=== PATIENT | female | born 1965 | race Caucasian/White ===

== ENCOUNTER → 2016-09-13 | Outpatient (CLI) | payer BC ==
--- NOTE | 2016-09-14 10:22 | DI ---
RIGHT DIAGNOSTIC MAMMOGRAMS, 09/13/2016 3:07 PM: Clinical History: Followup of an abnormal screening mammogram. The study apparently was performed at [place], [place]. At this time, we do not have the outside mammo grams. Prior Exam: 02/25/2011. Digital tomosynthesis scans of the right breast are obtained with the [employer] Interactive Digital Breast Unit. Standard 2-D and C-View images are obtained in the same projections as in the screening exam. C AD review is also performed. Breast tissue density is rated as heterogenously dense. There is no mass or focus of architectural di stortion identified in the right breast. No abnormal calcifications are noted. There are gas lucencie s corresponding to mammary ducts and these lead up to the nipple. Skin contour, nipple, and lower axi llary region are normal. Follow Up: Comparison is pending with the most recent previous outside mammograms. BIRADS Category: 0: Incomplete. Comparison with outside mammograms is recommended before final assess ment is included. Assessment: Incomplete: Need prior mammograms for comparison.
== END ==
LOC: MAMMO 14:59
PROVIDERS: ATTEND Nurse Practitioner Family
DX: R92.8 Other abnormal and inconclusive findings on diagnostic imaging of breast (principal)
CPT/HCPCS: G0206; G0279